=== PATIENT | male | born 1990 | race Caucasian/White ===

== ENCOUNTER 2016-05-20 11:26 | Emergency (ER) | payer SELFPAY ==
[2016-05-20 12:08] VITALS: BP 132/88
== END 2016-05-20 17:06 | disposition left against medical advice (07) ==
LOC: ED 11:26
DX: R42 Dizziness and giddiness (principal); R53.1 Weakness; Z53.21 Procedure and treatment not carried out due to patient leaving prior to being seen by health care provider